=== PATIENT | female | born 1990 | race Caucasian/White ===

== ENCOUNTER 2017-07-24 03:02 | Emergency (ER) | payer BC, MEDICAID ==
[2017-07-24 03:08] VITALS: RESP 18
[2017-07-24] MEDS ORDERED: IBUPROFEN SUSP 100 MG/5 ML UDCUP PO ONE (03:17)
[2017-07-24] MEDS ORDERED: DEXAMETHASONE 10 MG/ML VIAL PO ONE (03:55)
--- NOTE | 2017-07-24 04:00 | EDPHY ---
H & P Stated Complaint: sore throat x5 hours Time Seen by Provider: 07/24/17 03:47 HPI/ROS: HPI The patient presents with sore throat which has been present for the last 5 hr which is achy in bilateral in nature, worse with swallowing. She has not had a fever, she has had a mild cough. She has not had any neck pain. She has had episodes of strep pharyngitis in the past and is concerned maybe similar. REVIEW OF SYSTEMS Constitutional: No fever, no chills. Eyes: No discharge. ENT: Positive for sore throat. Cardiovascular: No chest pain, no palpitations. Respiratory: No cough, no shortness of breath. Gastrointestinal: No abdominal pain, no vomiting. Genitourinary: No hematuria. Musculoskeletal: No back pain. Skin: No rashes. Neurological: No headache. PMHx: History of strep pharyngitis, status post tonsillectomy Soc Hx: Housed PHYSICAL General Appearance: Alert, no distress Eyes: Pupils equal and round no pallor or injection ENT, Mouth: Mucous membranes moist, posterior pharynx is slightly erythematous without any exudate Respiratory: There are no retractions, lungs are clear to auscultation Cardiovascular: Regular rate and rhythm Gastrointestinal: Abdomen is soft and non-tender, no masses, bowel sounds normal Neurological: A&O, moves all extremities Skin: Warm and dry, no rashes Musculoskeletal: Neck is supple non tender Extremities: symmetrical, full range of motion Psychiatric: Patient is oriented X 3, there is no agitation Source: Patient Exam Limitations: No limitations - Personal History LMP (Females 10-55): 15-21 Days Ago Current Tetanus/Diphtheria Vaccine: Yes Tetanus Vaccine Date: < 10 YEARS - Medical/Surgical History Hx Asthma: No Hx Chronic Respiratory Disease: No Hx Diabetes: No Hx Cardiac Disease: No Hx Renal Disease: No Hx Cirrhosis: No Hx Alcoholism: No Hx HIV/AIDS: No Hx Splenectomy or Spleen Trauma: No Other PMH: NASAL REDUCTION,. migraines - Social History Smoking Status: Current some day smoker Constitutional: Initial Vital Signs Temperature (C) 37.0 C 07/24/17 03:05 Heart Rate 97 07/24/17 03:05 Respiratory Rate 18 07/24/17 03:05 Blood Pressure 141/80 H 07/24/17 03:05 O2 Sat (%) 93 07/24/17 03:05 O2 Delivery Mode Room Air Allergies/Adverse Reactions: No Known Allergies Allergy (Unverified 02/05/16 07:37) Home Medications: Medication Instructions Recorded Mauricio 02/05/16 Medical Decision Making Differential Diagnosis: 27-year-old female with several hours of sore throat without any other symptoms except for mild cough. On exam posterior pharynx is slightly erythematous. There is no anterior cervical lymphadenopathy, she does not have a fever. Rapid strep was checked and was negative. Given this, I will not treat her with antibiotics. I will give her a dose of Decadron here. I have instructed her to take ibuprofen and Tylenol as needed, she is in agreement with this plan. - Data Points Laboratory Results: 07/24/17 07/24/17 Unknown 03:15 Group A Strep Screen NEGATIVE (NEGATIVE) Group A Strep DNA Pending Medications Given: Discontinued Medications Dexamethasone (Decadron Injection) 10 mg PO EDNOW ONE Stop: 07/24/17 03:56 Last Admin: 07/24/17 04:10 Dose: 10 mg Ibuprofen (Motrin Oral Solution) 600 mg PO EDNOW ONE Stop: 07/24/17 03:18 Last Admin: 07/24/17 03:34 Dose: 600 mg Departure - Departure Disposition: Home, Routine, Self-Care Clinical Impression: Acute pharyngitis Qualifiers: Pharyngitis/tonsillitis etiology: unspecified etiology Qualified Code(s): J02.9 - Acute pharyngitis, unspecified Condition: Good Instructions: Pharyngitis (ED) Additional Instructions: Please return to the emergency department if your worse in any way. It seems that you would likely have a sore throat caused by a virus. I recommend you take ibuprofen 400 mg with acetaminophen 650 mg every 6 hr until your pain improves. Referrals: [facility],. [Clinic] - As per Instructions
[2017-07-24 04:17] VITALS: BP 124/85; PULSE 92; TEMP 98.1; O2SAT 95
== END 2017-07-24 04:17 | disposition home or self-care (01) ==
DX: J02.9 Acute pharyngitis, unspecified (principal); F17.200 Nicotine dependence, unspecified, uncomplicated
CPT/HCPCS: J1100

== ENCOUNTER 2017-07-28 00:04 | Emergency (ER) | payer MEDICAID ==
[2017-07-28 00:10] VITALS: BP 130/77; PULSE 72; RESP 16; TEMP 97.9; O2SAT 97
--- NOTE | 2017-07-28 00:33 | EDPHY ---
H & P Stated Complaint: Poss pink eye, cough, sore throat. Time Seen by Provider: 07/28/17 00:15 HPI/ROS: Chief complaint: Possible pinkeye History of present illness: This is a 27-year-old female who presents to the emergency department concerned she has pinkeye. Patient reports he has had cold symptoms for the last few days. She reports runny nose, nasal congestion, sore throat and a nonproductive cough. However over the last day she started having irritation in her eye and discharge from [place]. She denies associated signs or symptoms including no fevers, no visual disturbances, no trouble breathing, no rash. She occasionally uses contact but has not used them in a long time. - Personal History LMP (Females 10-55): 15-21 Days Ago Current Tetanus/Diphtheria Vaccine: Yes Current Tetanus Diphtheria and Acellular Pertussis (TDAP): Yes Tetanus Vaccine Date: < 10 YEARS - Medical/Surgical History Hx Asthma: No Hx Chronic Respiratory Disease: No Hx Diabetes: No Hx Cardiac Disease: No Hx Renal Disease: No Hx Cirrhosis: No Hx Alcoholism: No Hx HIV/AIDS: No Hx Splenectomy or Spleen Trauma: No Other PMH: NASAL REDUCTION,. migraines - Social History Smoking Status: Current some day smoker - Physical Exam Exam: General Appearance: Alert and no distress. Eyes: Pupils equal and round no injection. EOM intact. Trace injection bilaterally. No pustular discharge. [place]ma[place] orbital tissues unremarkable. ENT: Tympanic membranes, external auditory canals, external ears and surrounding soft tissue including over the mastoids are unremarkable. Nasopharynx is injected and edematous. There is clear to green rhinorrhea. Oropharynx is mildly injected. There is no edema. There is no exudate. There is no asymmetry. The uvula is midline. No elevation of the tongue. There is no hoarseness, no drooling, no trismus, no stridor. Respiratory: Chest is non tender, lungs are clear to auscultation. Cardiac: regular rate and rhythm Musculoskeletal: Neck is supple and non tender. Extremities have full range of motion and are non tender. Skin: No rashes or lesions. Constitutional: Initial Vital Signs Temperature (C) 36.6 C 07/28/17 00:07 Heart Rate 72 07/28/17 00:07 Respiratory Rate 16 07/28/17 00:07 Blood Pressure 130/77 H 03/25/18 00:07 O2 Sat (%) 97 07/28/17 00:07 O2 Delivery Mode Room Air Allergies/Adverse Reactions: No Known Allergies Allergy (Unverified 02/05/16 07:37) Home Medications: Medication Instructions Recorded Polymyxin B Sulfate/Tmp [Polytrim 1 drops EACHEYE Q4HRS 7 Days #1 07/28/17 Opht Drops (*)] bottle Medical Decision Making ED Course/Re-evaluation: Patient seen under the supervision of my secondary supervising physician Dr. Francisco Lee. Patient presents to the emergency department concerned she has conjunctivitis. She has had a URI for a number of days. She was seen in this emergency room earlier this week and had a negative strep test with a negative culture. Nasopharynx is significantly erythematous and edematous. I believe this could be causing tear duct dysfunction. I have recommended nasal steroid. Eye exam with minimal findings. Nevertheless I will cover with eye antibiotics. Home care is discussed including warm compresses. She is to follow up with a primary care doctor this week for recheck. Return precautions are given. Patient voiced understanding and agreement with plan. Differential Diagnosis: Included but not limited to tear duct dysfunction, conjunctivitis, blepharitis, periorbital cellulitis unremarkable Departure - Departure Disposition: Home, Routine, Self-Care Clinical Impression: URI, acute Condition: Good Instructions: Upper Respiratory Infection (ED) Additional Instructions: Follow-up with a primary care doctor for recheck this week Continue [id number] cold medications Consider a nasal steroid such as Flonase, use as directed If symptoms worsen or new symptoms develop return to the emergency department for recheck Referrals: NONE *PRIMARY CARE P,. [Primary Care Provider] - As per Instructions [facility],. [Clinic] - As per Instructions Prescriptions: Polymyxin B Sulfate/Tmp [Polytrim Opht Drops (*)] 1 drops EACHEYE Q4HRS 7 Days # 1 bottle
== END 2017-07-28 00:39 | disposition home or self-care (01) ==
DX: J06.9 Acute upper respiratory infection, unspecified (principal); F17.200 Nicotine dependence, unspecified, uncomplicated